=== PATIENT | male | born 2000 | race American Indian/Alaskan Native ===

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

== ENCOUNTER 2022-09-23 04:24 | Emergency (ER) | payer MEDICAID ==
[2022-09-23 04:46] VITALS: BP 146/98; PULSE 65
[2022-09-23] MEDS ORDERED: Ondansetron 4 MG/2 ML SDV IVPUSH ONE (04:49)
[2022-09-23] MEDS ORDERED: Famotidine 20 MG/2 ML SDV IVPUSH ONE (04:49)
[2022-09-23] MEDS ORDERED: Sodium Chloride 0.9% 1,000 ML IV ONE (04:49)
[2022-09-23] MEDS ORDERED: Iopamidol 612 MG/ML 100 ML Bottle IVPUSH ONE (04:56)
[2022-09-23 05:22] LABS: ANION GAP 10.8 mEq/L (7-13)
[2022-09-23] MEDS ORDERED: fentaNYL 100 MCG/2 ML SDV IVPUSH ONE (05:48)
[2022-09-23] MEDS ORDERED: Dicyclomine 10 MG Cap PO ONE (08:49)
== END 2022-09-23 08:59 ==
LOC: DL.ED 04:24
DX: K80.50 Calculus of bile duct without cholangitis or cholecystitis without obstruction (principal)
CPT/HCPCS: 36415; 74177; 80053; 82150; 83605; 83690; 85025; 87040; 96374; 96375; 99284; A9270; J2405; J3010; J3490; J7030; Q9967